=== PATIENT | female | born 1970 | race Caucasian/White ===

== ENCOUNTER → 2025-03-11 09:20 | Outpatient (REF) | payer OTHER, SELFPAY | LOC: WDC 09:20 | PROVIDERS: ATTENDING PHYSICIAN Obstetrics & Gynecology | DX: R92.8 Other abnormal and inconclusive findings on diagnostic imaging of breast (principal) | CPT/HCPCS: 77066 ==

== ENCOUNTER → 2025-03-26 06:33 | Outpatient (REF) | payer OTHER, SELFPAY ==
--- NOTE | 2025-03-26 09:11 | OID.BR.INTR ---
[facility] Navigator - Initial
- -
Date of Contact: 03/26/25
Met with patient. Patient given written information on navigator service available at [facility]. Will follow up as needed per protocol.
== END ==
LOC: WDC 06:33
PROVIDERS: ATTENDING PHYSICIAN Obstetrics & Gynecology
DX: R92.1 Mammographic calcification found on diagnostic imaging of breast (principal)
CPT/HCPCS: 19081; 76098; 88305; A4648